=== PATIENT | female | born 1990 | race African-American/Black ===

== ENCOUNTER 2017-07-14 07:09 | Outpatient (CLI) | payer OTHER ==
[~2017-07-14] VITALS: Ht 170.2 cm; Wt 68.0 kg
[2017-07-14 07:57] VITALS: BP 113/59
[2017-07-14] MEDS ORDERED: TERAZOL 745 GM VG (08:49)
== END 2017-07-14 10:12 | disposition home or self-care (01) ==
LOC: LDRP-OP 07:09 → 2WEST 07:10
DX: O23.593 Infection of other part of genital tract in pregnancy, third trimester (principal); N76.0 Acute vaginitis; Z87.891 Personal history of nicotine dependence; Z3A.35 35 weeks gestation of pregnancy
CPT/HCPCS: 59025; G0378